=== PATIENT | male | born 1950 | race Hispanic/Latino ===

== ENCOUNTER → 2019-07-14 | Outpatient (CLI) | payer OTHER | END | disposition home or self-care (01) | LOC: RAH 10:14 | PROVIDERS: ATTEND Internal Medicine Cardiovascular Disease | DX: Z13.6 Encounter for screening for cardiovascular disorders (principal) | CPT/HCPCS: 75571 ==

== ENCOUNTER 2019-10-28 05:38 | Day surgery (SDC) | payer OTHER, MEDICARE ==
[2019-10-28] VITALS (10 sets, daily range): BP systolic 117–143; BP diastolic 67–81
[~2019-10-28 05:38] MED LIST: ASPI-1012 PO; FINA5TAB41 PO; LATA7.5D OP; OMEP40CA13 PO; ROSU40TA21 PO; TAMS-1 PO
--- NOTE | 2019-10-28 06:00 | NUR ---
PATIENT ARRIVED TO DAY PATIENT ACCOMPANIED BY HIMSELF. PATIENT [id number] ,RESPIRATIONS UNLABORED, VITAL SIGNS STABLE, DENIES ANY PAIN AT THIS TIME. PROCEDURE EXPLAINED AND VERIFIED WITH PATIENT, PATIENT VERBALIZED UNDERSTANDING.
[2019-10-28 06:11] LABS: BASOPHILS % (AUTO) 0.4 % (0.0-5.0); EOSINOPHILS % (AUTO) 2.7 % (0.0-8.0); HEMATOCRIT 38.9 % (42-54); MEAN CORPUSCULAR HEMOGLOBIN 29.4 pg (27.0-33.0); MEAN CORPUSCULAR HGB CONC 33.7 g/dL (32.0-36.0); MEAN CORPUSCULAR VOLUME 87.2 fL (79-99); MONOCYTES % (AUTO) 7.3 % (3.0-13.0); NEUTROPHILS % (AUTO) 39.4 % (40.0-77.0); PLATELET COUNT (AUTO) 181 K/uL (130-400); RED BLOOD CELL COUNT(AUTO) 4.46 MIL/uL (4.50-6.20); RED CELL DISTRIBUTION WIDTH 13.6 % (11.0-15.5); WHITE BLOOD COUNT (AUTO) 5.6 K/uL (4.8-10.8)
[2019-10-28 06:20] LABS: APPEARANCE,URINE Clear (CLEAR); BILIRUBIN,URINE Negative (NEGATIVE); COLOR,URINE Yellow (YELLOW); GLUCOSE, URINE (UA) Negative (NEGATIVE); KETONES,URINE Negative (NEGATIVE); LEUKOCYTE ESTERASE ,URINE Negative (NEGATIVE); NITRATE,URINE Negative (NEGATIVE); OCCULT BLOOD,URINE Nonhemolyzed Trace (NEGATIVE); PROTEIN,URINE Negative (NEGATIVE); UROBILINOGEN,URINE 0.2 mg/dL (0.2-1.0)
[2019-10-28 06:22] LABS: CREATININE 1.1 mg/dL (0.5-1.5); POTASSIUM 4.4 mmol/L (3.5-5.1)
[2019-10-28 06:32] LABS: BACTERIA,URINE None Seen /HPF (None Seen); RBC,URINE 0-1 /HPF (0-1); SQUAMOUS EPITHELIAL CELL,UR 0-2 /HPF (0-2); WBC,URINE None Seen /HPF (0-1)
[2019-10-28 06:37] LABS: INR 0.96 (0.85-1.15); PARTIAL THROMBOPLASTIN TIME 26.6 SEC (26.3-35.5); PROTHROMBIN TIME 10.4 SEC (9.6-11.6)
[2019-10-28] MEDS ORDERED: HEPARIN SODIUM 1000UNIT/ML 10ML VIAL ONE (07:24)
[2019-10-28] MEDS ORDERED: NITROGLYCERIN 2 MG/VIAL VIAL IV ONE (07:24)
[2019-10-28] MEDS ORDERED: LIDOCAINE HCL 2% 20ML ONE (07:24)
[2019-10-28] MEDS ORDERED: IOHEXOL 350 MG/ML 100ML INFUS..BTL IV ONE (07:24)
[2019-10-28] MEDS ORDERED: MEPERIDINE-PF 25 MG/ML SYG ONE (07:24)
[2019-10-28] MEDS ORDERED: SODIUM BICARB 50MEQ 50ML VIAL ONE (07:24)
[2019-10-28] MEDS ORDERED: MIDAZOLAM HCL 1 MG/ML 2ML VIAL ONE (07:24)
[2019-10-28] MEDS ORDERED: IOHEXOL-350 50ML VIAL IV ONE (07:24)
--- NOTE | 2019-10-28 07:25 | NUR ---
PATIENT TRANSFERRED TO WEB SEARCH EVALUATOR VIA BED BY FERNANDO MOLINA.
[2019-10-28] MEDS ORDERED: SODIUM CHLORIDE 0.9% 1000ML 1,000 ML IV SCH (08:34)
--- NOTE | 2019-10-28 11:30 | NUR ---
REPORT RECEIVED REPORT FROM LOR KING. PT IN NO DISTRESS AT THIS TIME AND RT GROIN DRESSING WITH SCANT BLOOD STAIN NOTED BUT FREE FROM ACTIVE BLEEDING OR HEMATOMA. WILL CONTINUE TO MONITOR PT.
--- NOTE | 2019-10-28 11:37 | NUR ---
REPORT GIVE TO AMELIARN AT BEDSIDE USING SBAR. DRESSING TO GROIN CHECKED, DRESSING DRY AND INTACT, NO HEMATOMA, SOFT/NONTENDER. PATIENT RESTING COMFORTABLY.
--- NOTE | 2019-10-28 13:05 | NUR ---
DISCHARGE PT AND SIGNIFICANT OTHER GIVEN DISCHARGE INSTRUCTIONS AND SCRIPT. UNDERSTANDING VOICED. PT TAKEN OUT VIA W/C IN NO DISTRESS. GROIN SITE FREE FROM HEMATOMA OR ACTIVE BLEEDING. GOOD PEDAL PULSE AND CIRCULATION TO RT LOWER EXTREMITY
== END 2019-10-28 13:05 | disposition home or self-care (01) ==
LOC: DAH 05:38
PROVIDERS: ATTEND Internal Medicine Cardiovascular Disease
DX: I25.10 Atherosclerotic heart disease of native coronary artery without angina pectoris (principal); E78.5 Hyperlipidemia, unspecified; R00.1 Bradycardia, unspecified; I34.0 Nonrheumatic mitral (valve) insufficiency; I10 Essential (primary) hypertension; K21.9 Gastro-esophageal reflux disease without esophagitis; I48.91 Unspecified atrial fibrillation
CPT/HCPCS: 36415; 71045; 80048; 81001; 85025; 85610; 85730; 93005; 93458; A4215; A4216; A4221; A4222; A4223 ×3; A4606; A4663; C1760; C1894; J1644; J2175; J2250; J3490 ×3; Q9965; Q9967 ×2; 99156; 99157

== ENCOUNTER → 2022-09-23 | Outpatient (CLI) | payer BC, MEDICARE ==
[~2022-09-23] MED LIST changes: -ASPI-1012 PO; -OMEP40CA13 PO; +OMEP40CA21 PO
== END | disposition home or self-care (01) ==
LOC: SHCH 08:40
PROVIDERS: ATTEND Internal Medicine Cardiovascular Disease
DX: I48.0 Paroxysmal atrial fibrillation (principal); E78.5 Hyperlipidemia, unspecified
CPT/HCPCS: 93306

== ENCOUNTER → 2022-09-30 | Outpatient (CLI) | payer MEDICARE ==
[~2022-09-30] MED LIST changes: +REGADENOSON 0.4 MG/5 ML PF SYG IVP ONE
== END | disposition home or self-care (01) ==
LOC: SHCH 07:47
PROVIDERS: ATTEND Internal Medicine Cardiovascular Disease
DX: I48.0 Paroxysmal atrial fibrillation (principal); I48.92 Unspecified atrial flutter
CPT/HCPCS: 78452; 96374; 93017; J2785; A9500 ×2

== ENCOUNTER → 2022-10-14 | Outpatient (CLI) | payer MEDICARE ==
[~2022-10-14] MED LIST changes: -REGADENOSON 0.4 MG/5 ML PF SYG IVP ONE
[2022-10-14 16:34] LABS: CREATININE 0.9 mg/dL (0.5-1.5); POTASSIUM 3.8 mmol/L (3.5-5.1)
== END | disposition home or self-care (01) ==
LOC: LAB 11:44
PROVIDERS: ATTEND Physician Assistant
DX: I10 Essential (primary) hypertension (principal)
CPT/HCPCS: 36415; 80048

== ENCOUNTER → 2022-10-16 | Outpatient (CLI) | payer MEDICARE ==
[~2022-10-16] MED LIST changes: +IOHEXOL 350 MG/ML 100ML INFUS..BTL IV ONE
== END | disposition home or self-care (01) ==
LOC: RAH 08:48
PROVIDERS: ATTEND Internal Medicine Cardiovascular Disease
DX: M47.815 Spondylosis without myelopathy or radiculopathy, thoracolumbar region (principal); R07.9 Chest pain, unspecified; I10 Essential (primary) hypertension
CPT/HCPCS: 75574; Q9967

== ENCOUNTER → 2023-07-26 | Outpatient (CLI) | payer BC, MEDICARE ==
[~2023-07-26] MED LIST changes: -IOHEXOL 350 MG/ML 100ML INFUS..BTL IV ONE
== END | disposition home or self-care (01) ==
LOC: SHCH 14:47
PROVIDERS: ATTEND Internal Medicine Cardiovascular Disease
DX: I25.119 Atherosclerotic heart disease of native coronary artery with unspecified angina pectoris (principal)
CPT/HCPCS: 93880

== ENCOUNTER → 2024-12-15 | Outpatient (CLI) | payer BC, MEDICARE ==
[~2024-12-15] MED LIST changes: -ROSU40TA21 PO; +ROSU40TA88 PO; -TAMS-1 PO; +TAMS-55 PO
[2024-12-15] MEDS: REGADENOSON 0.4 MG/5 ML PF SYG IVP ONE (09:27)
== END | disposition home or self-care (01) ==
LOC: SHCH 07:30
PROVIDERS: ATTEND Internal Medicine Cardiovascular Disease
DX: I25.10 Atherosclerotic heart disease of native coronary artery without angina pectoris (principal); R06.00 Dyspnea, unspecified; R42 Dizziness and giddiness
CPT/HCPCS: 78452; 93017; J2785; A9500 ×2